=== PATIENT | female | born 1960 | race Caucasian/White ===

== ENCOUNTER → 2016-11-29 | Outpatient (CLI) | payer OTHER ==
[~2016-11-29] MED LIST: AMLODIPINE BESYL5 MG PO; BACTRIM DS TABL1 TA1 PO; CAPOZIDE PO; CELEXA PO; COREG; FLEXERIL10 M1; FLEXERIL10 M1 PO; FLEXERIL10 MG PO; HCTZ PO; LISINOPRIL; LORTAB 7.51 TAB 7.5/ DOB; MEDROL DOSEPAK4 MG; PROMETHAZINE V118 M1 PO; VOLTAREN50 MG PO; VOLTAREN75 MG; VOLTAREN75 MG PO
--- NOTE | ~2016-11-29 | US85 ---
[facility] A Service [facility] RADIOLOGY TEXT RESULTS PATIENT: BELKIS KANG LOCATION: SNIV : 62 UNIT #: [id number] AGE: [address]: SOL WRIGHT APRN SEX: F ORDER DR: [id number] [address] [address] [id number] O MR#: [id number] Acc #: [id number] NAME: BELKIS KANG : 1960 SEX: F STUDY DATE/TIME: 11/29/2016 8:10 UNIT: SNIV ROOM: STUDY DESCRIPTION: [facility] Attending Physician: Sol Wright Aprn Referring Physician: Sol Wright Aprn Ordering Physician: Sol Wright Aprn Primary Care Physician: Sol Wright Aprn MEDICAL IMAGING REPORT This report is preliminary unless electronic signature is present. EXAM Lower extremity venous ultrasound, 11/29/2016. HISTORY Right leg pain. Right lower extremity venous pain for 2 weeks. No previous DVT. Not taking blood thinner. TECHNIQUE Venous ultrasound examination of the right lower extremity was performed using grayscale, spectral Doppler and color flow Doppler imaging. FINDINGS The examination is negative. There is no evidence of right lower extremity deep venous thrombus from the groin to the lower calf. Visualized greater saphenous vein is also patent. IMPRESSION Negative examination. No evidence of right lower extremity deep venous thrombosis. Dictated by... Jethro Vee M.D. THIS IS AN ELECTRONICALLY VERIFIED REPORT Jethro Vee M.D. at 12/04/2016 10:14 AM JUSTO/ryley TD: 11/29/2016 14:09 JOB #: [id number] [facility] A Service [facility] RADIOLOGY TEXT RESULTS PATIENT: BELKIS KANG LOCATION: SNIV : 62 UNIT #: [id number] AGE: [address]: SOL WRIGHT APRN SEX: F ORDER DR: MEDICAL IMAGING REPORT Page 1 of 1
== END | disposition home or self-care (01) ==
LOC: SNIV 07:53
DX: I83.91 Asymptomatic varicose veins of right lower extremity (principal)
CPT/HCPCS: 93971